=== PATIENT | male | born 1995 | race Caucasian/White ===

== ENCOUNTER 2019-04-23 01:35 | Emergency (ER) | payer BC ==
[2019-04-23] MEDS ORDERED: Tetracaine HCl/PF 0.5% 4 ML Bottle EYEBOTH ONE (01:40)
--- NOTE | 2019-04-23 02:01 | EDM.PDOC ---
ED HPI GENERAL MEDICAL PROBLEM - General Chief Complaint: Eye Problems Stated Complaint: EYES BURNING Time Seen by Provider: 04/23/19 01:45 Source of Information: Reports: Patient History Limitations: Reports: No Limitations - History of Present Illness INITIAL COMMENTS - FREE TEXT/NARRATIVE: 24 YO WM presents to ER with bilateral eye pain after welding earlier in the day. Pt reports pain began around 10pm and gradually got worse throughout the evening prompting ER visit. Pt denies eye trauma but says when he was riding home he had the windows down in his vehicle and noticed his eye bothering him at the time. Onset: Today Duration: Hour(s): (5) Quality: Reports: Burning Severity: Moderate Improves with: Reports: Other (closing his eyes) Worsens with: Reports: Other (bright light) Associated Symptoms: Reports: No Other Symptoms. Denies: Headaches, Nausea/ Vomiting, Seizure - Related Data Allergies Allergy/AdvReac Type Severity Reaction Status Date / Time No Known Drug Allergies Allergy Cannot Verified 04/23/19 01:45 Remember Home Meds: Home Meds . [No Known Home Meds] 11/09/14 [History] Past Medical History - Past Health History Medical/Surgical History: Denies Medical/Surgical History ED ROS GENERAL - Review of Systems Review Of Systems: See Below Constitutional: Reports: No Symptoms HEENT: Reports: Eye Pain Respiratory: Reports: No Symptoms Cardiovascular: Reports: No Symptoms Endocrine: Reports: No Symptoms GI/Abdominal: Reports: No Symptoms : Reports: No Symptoms Musculoskeletal: Reports: No Symptoms Skin: Reports: No Symptoms Neurological: Reports: No Symptoms Psychiatric: Reports: No Symptoms Hematologic/Lymphatic: Reports: No Symptoms Immunologic: Reports: No Symptoms ED EXAM GENERAL W FULL EYE - Physical Exam Exam: See Below Exam Limited By: No Limitations General Appearance: Alert, WD/WN, No Apparent Distress Conjunctiva & Sclera: Bilateral: Injected Cornea Exam: Bilateral: Normal Appearance Extraocular Movements: Bilateral: Intact Pupillary Size: Bilateral: 4 mm Pupillary Reaction: Bilateral: Brisk Anterior Chamber: Bilateral: Normal Appearance Posterior Chamber: Bilateral: Normal Funduscopic Head: Atraumatic, Normocephalic Neck: Normal Inspection, Supple, Non-Tender, Full Range of Motion Respiratory/Chest: No Respiratory Distress, Lungs Clear, Normal Breath Sounds, No Accessory Muscle Use, Chest Non-Tender Cardiovascular: Normal Peripheral Pulses, Regular Rate, Rhythm, No Edema, No Gallop, No JVD, No Murmur, No Rub GI/Abdominal: Normal Bowel Sounds, Soft, Non-Tender, No Organomegaly, No Distention, No Abnormal Bruit, No Mass Extremities: Normal Inspection, Normal Range of Motion, Non-Tender, Normal Capillary Refill, No Pedal Edema Neurological: Alert, Oriented, CN II-XII Intact, Normal Cognition, Normal Gait, Normal Reflexes, No Motor/Sensory Deficits Psychiatric: Normal Affect, Normal Mood Skin Exam: Warm, Dry, Intact, Normal Color, No Rash Lymphatic: No Adenopathy ED EYE w/ Add Procedure - Eye Procedure Alcaine Drops Administered: Yes Eye Irrigated w/ Saline (ccs): 20 Progress: no fluorecin uptake or corneal abrasion identified Departure - Departure Time of Disposition: 02:08 Disposition: Home, Self-Care 01 Condition: Good Clinical Impression: UV keratitis Qualifiers: Laterality: bilateral Qualified Code(s): H16.133 - Photokeratitis, bilateral - Discharge Information Instructions: Ultraviolet Keratitis, [id number] Additional Instructions: 1. discharge home 2. motrin/tylenol Q6 PRN pain 3. keep eyes shielded from light 4. no eye rubbing 5. if no improvement next 24-48 hours follow up with PCP 6. if symptoms worsen, return to ER - Assessment/Plan Assessment:: 1. UV Keratitis Plan: 1. discharge home 2. motrin/tylenol Q6 PRN pain 3. keep eyes shielded from light 4. no eye rubbing 5. if no improvement next 24-48 hours follow up with PCP 6. if symptoms worsen, return to ER
[2019-04-23 02:07] VITALS: BP 120/84; PULSE 98
== END 2019-04-23 02:10 | disposition home or self-care (01) ==
LOC: KA.ED 01:35
DX: H16.133 Photokeratitis, bilateral (principal)
CPT/HCPCS: 99283